=== PATIENT | female | born 1965 | race Two or more races ===

== ENCOUNTER 2020-10-11 07:30 | Day surgery (SDC) | payer OTHER | END 2020-10-11 12:45 | disposition home or self-care (01) | LOC: AMB-ENDOS 07:30 | PROVIDERS: ATTEND Surgery | DX: D12.5 Benign neoplasm of sigmoid colon (principal); Z20.822 Contact with and (suspected) exposure to COVID-19; Z12.11 Encounter for screening for malignant neoplasm of colon ==

== ENCOUNTER 2021-08-19 07:25 | Day surgery (SDC) | payer OTHER ==
[2021-08-19] MEDS ORDERED: KETO10TA2 PO (12:24)
[2021-08-19] MEDS ORDERED: PERCOCET 5-3251 EACH PO (12:24)
[2021-08-19] MEDS ORDERED: DERMOPLAST PAIN78 GM TOP (12:25)
[2021-08-19] MEDS ORDERED: NEURONTIN300 MG PO (12:25)
== END 2021-08-19 17:08 | disposition home or self-care (01) ==
LOC: CIR.AMB 07:25
PROVIDERS: ATTEND Surgery
DX: K60.3 Anal fistula (principal); Z71.6 Tobacco abuse counseling; F17.210 Nicotine dependence, cigarettes, uncomplicated; Z20.822 Contact with and (suspected) exposure to COVID-19